=== PATIENT | male | born 1965 | race Caucasian/White ===

== ENCOUNTER → 2020-09-15 16:29 | Outpatient (BNVA) | payer BC, SELFPAY | PROVIDERS: Family Provider Nurse Practitioner; PCP Nurse Practitioner; Visit Provider Nurse Practitioner | DX: Z00.00 Encounter for general adult medical examination without abnormal findings (principal); Z13.6 Encounter for screening for cardiovascular disorders; Z12.5 Encounter for screening for malignant neoplasm of prostate; F17.200 Nicotine dependence, unspecified, uncomplicated | CPT/HCPCS: 71046; 80053; 80061; 81000; 85025; G0103 ==

== ENCOUNTER → 2022-10-13 11:44 | Outpatient (BNVA) | payer OTHER, SELFPAY | PROVIDERS: Family Provider Nurse Practitioner; PCP Nurse Practitioner; Visit Provider Nurse Practitioner | DX: Z00.00 Encounter for general adult medical examination without abnormal findings (principal); Z13.6 Encounter for screening for cardiovascular disorders; Z12.5 Encounter for screening for malignant neoplasm of prostate | CPT/HCPCS: 80053; 80061; 81000; 85025; G0103 ==

== ENCOUNTER → 2022-11-15 17:00 | Outpatient (BNVA) | payer OTHER, SELFPAY | PROVIDERS: Family Provider Nurse Practitioner; PCP Nurse Practitioner; Visit Provider Nurse Practitioner | DX: L98.9 Disorder of the skin and subcutaneous tissue, unspecified (principal) | CPT/HCPCS: 88305 ==

== ENCOUNTER → 2023-03-02 15:31 | Outpatient (BNVA) | payer OTHER, SELFPAY | PROVIDERS: Family Provider Nurse Practitioner; PCP Nurse Practitioner; Visit Provider Nurse Practitioner Family | DX: N39.0 Urinary tract infection, site not specified (principal) | CPT/HCPCS: 80053; 81000; 85025 ==

== ENCOUNTER → 2023-05-17 15:16 | Outpatient (BNVA) | payer OTHER, SELFPAY | PROVIDERS: Family Provider Nurse Practitioner; PCP Nurse Practitioner; Visit Provider Nurse Practitioner Family | DX: Z87.898 Personal history of other specified conditions (principal); N39.0 Urinary tract infection, site not specified | CPT/HCPCS: 81000; 84153; 85025 ==

== ENCOUNTER → 2023-06-02 09:30 | Outpatient (BNVA) | payer OTHER, SELFPAY | PROVIDERS: Family Provider Nurse Practitioner; PCP Nurse Practitioner; Visit Provider Nurse Practitioner Family | DX: N39.0 Urinary tract infection, site not specified (principal); R97.20 Elevated prostate specific antigen [PSA] | CPT/HCPCS: 81000 ==

== ENCOUNTER → 2024-07-11 12:04 | Outpatient (BNVA) | payer OTHER, SELFPAY | PROVIDERS: Family Provider Nurse Practitioner; PCP Nurse Practitioner; Visit Provider Nurse Practitioner | DX: Z12.2 Encounter for screening for malignant neoplasm of respiratory organs (principal); Z00.00 Encounter for general adult medical examination without abnormal findings; Z13.6 Encounter for screening for cardiovascular disorders; Z12.5 Encounter for screening for malignant neoplasm of prostate; R91.8 Other nonspecific abnormal finding of lung field; R06.02 Shortness of breath | CPT/HCPCS: 71046; 80053; 80061; G0103 ==

== ENCOUNTER 2024-07-31 13:38 | Outpatient (CLI) | payer OTHER, SELFPAY ==
--- NOTE | 2024-07-31 13:45 | CTR_ITS ---
PROCEDURE INFORMATION: Exam: CT Chest Without Contrast; Diagnostic Exam date and time: 07/31/2024 1:47 PM Age: 59 years old Clinical indication: Abnormal findings; Abnormal radiologic exam of lung or chest; Additional info: R93.89 - abnormal findings on diagnostic imaging of other. . . TECHNIQUE: Imaging protocol: Diagnostic computed tomography of the chest without contrast. Radiation optimization: All CT scans at this facility use at least one of these dose optimization techniques: automated exposure control; mA and/or kV adjustment per patient size (includes targeted exams where dose is matched to clinical indication); or iterative reconstruction. COMPARISON: CR XR chest 2V* [id number] 07/11/2024 12:04 PM RADIATION DOSE METRICS: Total DLP (mGy-cm): 273.9 FINDINGS: Lungs: Lung windows demonstrate emphysematous change and component of associated scattered peripheral interstitial thickening or prominence involving portions of both lungs, more prominent lower lungs. A rounded 9 mm noncalcified nodule is seen within the posterolateral lower left lung. A smaller 6-7 mm noncalcified nodule is seen within the lateral upper right lung. No consolidation. Pleural spaces: No pleural effusion or pneumothorax. Heart: No cardiomegaly or pericardial effusion. [id number] coronary artery calcification. Lymph nodes: Calcified lymph nodes within the mediastinum and right hilar region are seen. Findings indicate benign healed granulomatous disease change. No significant lymphadenopathy otherwise. Vasculature: Mild arteriosclerosis of the thoracic aorta. Thoracic aorta and pulmonary arteries appear unremarkable for unenhanced exam otherwise. Stomach: Images of the visualized upper-most abdomen show no acute abnormality. Gastric contents noted in the stomach. Bones/joints: Bone windows show no acute osseous abnormality. Soft tissues: Unremarkable. CT/CT chest wo con [id number] IMPRESSION: 1. Emphysematous change with mild scattered peripheral interstitial thickening or prominence likely mild interstitial fibrosis, more prominent lower lungs. 2. Calcified nodes within the mediastinum and right hilar region indicate benign healed granulomatous disease. 3. Mild arteriosclerosis thoracic aorta and [id number] coronary artery calcification. 4. Rounded 9 mm noncalcified nodule posterolateral lower left lung and smaller 6-7 mm noncalcified nodule lateral upper right lung. Regarding 9 mm nodule: For both low risk and high risk patients, consider CT Chest at 3 months, PET/CT, or biopsy. (Reference: Juan M) Regarding 6-7 mm nodule: For patients at high risk (history of smoking or of other known risk factors), recommend CT Chest at 6-12 months, then CT Chest at 18-24 months. (Reference: Juan M) COMMENTS: The presence of pulmonary emphysema on CT is an independent risk factor for lung cancer. In the absence of a history or active diagnosis of lung cancer, it is recommended that this patient with emphysema be evaluated for enrollment in a low dose CT lung cancer screening program.
== END 2024-07-31 13:39 | disposition home or self-care (01) ==
LOC: RAD 13:39
PROVIDERS: Family Provider Nurse Practitioner; PCP Nurse Practitioner; Visit Provider Nurse Practitioner
DX: J43.9 Emphysema, unspecified (principal); I70.0 Atherosclerosis of aorta; I25.84 Coronary atherosclerosis due to calcified coronary lesion; R91.8 Other nonspecific abnormal finding of lung field; R93.89 Abnormal findings on diagnostic imaging of other specified body structures
CPT/HCPCS: 71250

== ENCOUNTER → 2024-10-05 09:55 | Outpatient (BNVA) | payer OTHER, SELFPAY | PROVIDERS: Family Provider Nurse Practitioner; PCP Nurse Practitioner; Visit Provider Internal Medicine Cardiovascular Disease | DX: R07.9 Chest pain, unspecified (principal) | CPT/HCPCS: 93005 ==

== ENCOUNTER 2024-11-05 15:26 | Outpatient (CLI) | payer OTHER, SELFPAY ==
--- NOTE | 2024-11-05 15:45 | CT_ITS ---
WS: [id number] CT CHEST TECHNIQUE: Noncontrast CT of the chest with coronal and sagittal reformatted images. CLINICAL INFORMATION: R91.8 - Other nonspecific abnormal finding of lung field COMPARISON: 07/31/2024 DLP: 271.[address] scans at [facility] use at least one of these dose optimization techniques: automated e xposure control; mA and/or kV adjustment per patient size (includes targeted exams where dose is matc hed to clinical indication); or iterative reconstruction. FINDINGS: Moderate chronic emphysematous changes. Interstitial thickening in the lung bases. Noncalci fied nodule LEFT lower lobe measuring 8 mm. Noncalcified nodule RIGHT upper lobe measuring 6 mm. Nodu les are stable compared to previous. Recommend 6-month follow-up. No new pulmonary parenchymal abnormalities. Normal caliber thoracic aorta. Aortic calcification. Coronary calcification. Calcified mediastinal an d RIGHT hilar lymph nodes. No mediastinal or hilar lymphadenopathy. No axillary lymphadenopathy. Adrenal glands are normal. Mild thoracic curve. Mild thoracic kyphosis. CT/CT chest wo con [id number] IMPRESSION: 1. Previously described LEFT lower lobe 8 mm nodule and RIGHT upper lobe 6 mm nodule are stable compared to 07/31/2024. Recommend 6-month follow-up chest CT. 2. Moderate chronic emphysematous changes with peripheral interstitial thicken ing in the lung bases unchanged. 3. No other significant changes compared to previous.
== END 2024-11-05 15:27 | disposition home or self-care (01) ==
LOC: RAD 15:30
PROVIDERS: Family Provider Nurse Practitioner; PCP Nurse Practitioner; Visit Provider Nurse Practitioner
DX: R91.8 Other nonspecific abnormal finding of lung field (principal); J44.89 Other specified chronic obstructive pulmonary disease; J43.8 Other emphysema; I70.0 Atherosclerosis of aorta; I89.8 Other specified noninfective disorders of lymphatic vessels and lymph nodes; M43.8X4 Other specified deforming dorsopathies, thoracic region; M40.294 Other kyphosis, thoracic region
CPT/HCPCS: 71250

== ENCOUNTER 2025-04-18 09:13 | Outpatient (CLI) | payer OTHER, SELFPAY ==
--- NOTE | 2025-04-18 09:30 | CT_ITS ---
WS: [id number] CT chest wo con [id number] HISTORY: R91.8 - Other nonspecific abnormal finding of lung field TECHNIQUE: Axial imaging performed through the thorax. Coronal and sagittal reformats are submitted. All CT scans at [facility] use at least one of these dose optimization techniques: automated exposure control; mA and/or kV adjustment per patient size (includes targeted exams where dose is matched to clinical indication); or iterative reconstruction. CONTRAST: None DLP: 296.24 mGy.cm COMPARISON: 08/06/2010, 07/31/2024 Lungs and central airway: Moderate pulmonary hyperexpansion with peripheral interstitial pulmonary fibrosis. Previously described 6 mm nodule in the RIGHT upper lobe is reidentified. Well-circumscribed nodule measuring 9 mm LEFT lower lobe is reidentified. No new mass or nodule. Linear scarring RIGHT lung base. Pleura: Normal. No pleural effusion. Heart and pericardium: Normal size heart with no pericardial effusion. Mediastinum and beatrice: No pathological lymph nodes in the mediastinum. Calcified hilar and RIGHT mediastinal lymph nodes. Vessels: Mild atherosclerosis aorta. No aneurysm. Normal size pulmonary artery. Mild ectasia aorta. Normal size pulmonary artery. Chest wall and lower neck: No soft tissue masses. Upper abdomen: No adrenal mass. Visualized liver and pancreas and spleen are negative. Osseous structures: Increase in thoracic kyphosis. CT/CT chest wo con [id number] IMPRESSION: 1. Stable 6 mm RIGHT upper lobe nodule and 9 mm LEFT lower lobe nodule. These nodules are stable since 08/06/2010. 2. Interstitial pulmonary fibrosis. 3. No pneumonia.
== END 2025-04-18 09:14 | disposition home or self-care (01) ==
PROVIDERS: Family Provider Nurse Practitioner; PCP Nurse Practitioner; Visit Provider Nurse Practitioner
DX: R91.8 Other nonspecific abnormal finding of lung field (principal); J84.10 Pulmonary fibrosis, unspecified; J98.4 Other disorders of lung; I89.8 Other specified noninfective disorders of lymphatic vessels and lymph nodes; I77.819 Aortic ectasia, unspecified site; I70.0 Atherosclerosis of aorta
CPT/HCPCS: 71250

== ENCOUNTER → 2025-07-31 09:11 | Outpatient (BNVA) | payer OTHER, SELFPAY | PROVIDERS: Family Provider Nurse Practitioner; PCP Nurse Practitioner; Visit Provider Nurse Practitioner | DX: Z13.6 Encounter for screening for cardiovascular disorders (principal); Z12.5 Encounter for screening for malignant neoplasm of prostate | CPT/HCPCS: 80061; 85025; G0103 ==